=== PATIENT | male | born 2000 | race Caucasian/White ===

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

== ENCOUNTER → 2019-01-19 | Outpatient (CLI) | payer BC, OTHER ==
--- NOTE | 2019-01-20 07:27 | REP ---
RIGHT ELBOW COMPLETE: 01/19/2019. Clinical history: Elbow trauma. Patient states injury posterior elbow. Findings: Four views are provided. There are no prior studies. There is some soft tissue swelling over the olecranon but no definite joint effusion, fracture nor visible avulsion from the olecranon at the triceps insertion. The radial head and capitellum align normally with no impaction fractures, coronoid process of the ulna intact. The distal humerus intact. No abnormal soft-tissue calcifications evident. Impression: 1. Some mild soft-tissue swelling over the olecranon that may reflect some traumatic olecranon bursitis. I do not see avulsion fragment from triceps avulsion, joint effusion, fracture, or other abnormal soft-tissue calcification. Electronically Signed by Tio Temple MD 01/20/2019 08:22 A
== END ==
LOC: M WUC 17:35
PROVIDERS: ATTEND Physician Assistant
DX: M70.21 Olecranon bursitis, right elbow (principal)